=== PATIENT | male | born 1995 | race African-American/Black ===

== ENCOUNTER 2022-03-30 11:46 | Emergency (ER) | payer OTHER ==
[~2022-03-30] VITALS: Ht 180.3 cm; Wt 83.9 kg
[2022-03-30 11:46] VITALS: BP 116/82
[2022-03-30] MEDS ORDERED: PROM118S5 PO (12:07)
[2022-03-30] MEDS ORDERED: AZIT250T PO (12:07)
[2022-03-30] MEDS ORDERED: IBUP-1957 PO (12:07)
[2022-03-30] MEDS ORDERED: PROM6.256 PO (12:12)
--- NOTE | 2022-03-30 12:12 | NUR ---
Patient discharged to home in stable condition. Written and verbal after care instructions given. Patient verbalizes understanding of instruction.
== END 2022-03-30 12:13 | disposition home or self-care (01) ==
LOC: ER 11:51
DX: J40 Bronchitis, not specified as acute or chronic (principal); F17.210 Nicotine dependence, cigarettes, uncomplicated; Z60.2 Problems related to living alone

== ENCOUNTER 2022-08-08 13:03 | Emergency (ER) | payer OTHER ==
[~2022-08-08] VITALS: Ht 180.3 cm; Wt 86.2 kg
[~2022-08-08 13:03] MED LIST: AZIT250T PO; IBUP-1957 PO; PROM6.256 PO
[2022-08-08 13:24] VITALS: BP 123/66
[2022-08-08] MEDS ORDERED: AZIT250T13 PO (14:18)
--- NOTE | 2022-08-08 14:24 | NUR ---
strep swab collected and sent to lab.
--- NOTE | 2022-08-08 14:25 | NUR ---
Patient discharged to home in stable condition. Written and verbal after care instructions given. Patient verbalizes understanding of instruction.
== END 2022-08-08 14:24 | disposition home or self-care (01) ==
LOC: ER 13:05
DX: J06.9 Acute upper respiratory infection, unspecified (principal); F17.200 Nicotine dependence, unspecified, uncomplicated; Z60.2 Problems related to living alone; Z79.899 Other long term (current) drug therapy
CPT/HCPCS: 86403-TC; 87070-TC

== ENCOUNTER 2025-08-13 12:01 | Emergency (ER) | payer OTHER ==
[~2025-08-13] VITALS: Ht 180.3 cm; Wt 90.7 kg
[~2025-08-13 12:01] MED LIST changes: +AZIT250T13 PO
[2025-08-13 12:40] VITALS: TEMP 98.5
[2025-08-13] MEDS ORDERED: BENZ-13 PO (13:46)
[2025-08-13] MEDS ORDERED: AZIT250T13 PO (13:46)
[2025-08-13] MEDS ORDERED: GUAI120013 PO (13:46)
[2025-08-13 13:52] VITALS: BP 128/79; O2SAT 96
== END 2025-08-13 13:49 | disposition home or self-care (01) ==
LOC: ER 12:05
DX: J40 Bronchitis, not specified as acute or chronic (principal); F17.200 Nicotine dependence, unspecified, uncomplicated; Z79.1 Long term (current) use of non-steroidal anti-inflammatories (NSAID); Z60.2 Problems related to living alone; Z79.899 Other long term (current) drug therapy